=== PATIENT | female | born 1960 | race Caucasian/White ===

== ENCOUNTER → 2021-02-09 | Outpatient (CLI) | payer OTHER | LOC: SJCVCIMAG 11:24 | PROVIDERS: ATTEND Internal Medicine | DX: I08.2 Rheumatic disorders of both aortic and tricuspid valves (principal); I49.3 Ventricular premature depolarization; R00.2 Palpitations; I10 Essential (primary) hypertension ==

== ENCOUNTER 2021-06-06 12:04 | Emergency (ER) | payer OTHER ==
[~2021-06-06] VITALS: Ht 162.6 cm; Wt 59.0 kg
[2021-06-06 15:22] LABS: ABSOLUTE NEUTROPHILS 5.2 thou/uL (1.4-8.2); BASOPHILS 0.3 % (0.0-2.0); EOSINOPHILS 1.1 % (0.0-3.0); HEMATOCRIT 35.5 % (37.0-47.0); HEMOGLOBIN 12.1 gm/dL (12.0-15.0); LYMPHOCYTES 17.7 % (24.0-44.0); MCH 31.8 pg (26.0-34.0); MCHC 34.1 g/dL (28.0-37.0); MCV 93.2 fL (80.0-100.0); MONOCYTES 5.1 % (1.0-8.0); PLATELET COUNT 255 thou/uL (150-400); POLYS 75.8 % (36.0-66.0); RBC 3.81 mil/uL (4.20-5.00); RDW 12.8 % (10.5-14.5); WBC 6.9 thou/uL (4.0-11.0)
[2021-06-06 15:31] LABS: CALCIUM 8.6 mg/dL (8.5-10.1); CREATININE 0.6 mg/dL (0.6-1.0); POTASSIUM 3.6 mmol/L (3.5-5.1)
[2021-06-06 15:37] LABS: APTT 24.8 Seconds (24.5-32.8); INR 0.95; PROTIME 10.4 Seconds (10.5-12.1)
[2021-06-06] MEDS ORDERED: LISINOPRIL20 MG PO (16:07)
[2021-06-06] MEDS ORDERED: HYDROCHLOROTHIA25 M1 PO (16:07)
[2021-06-06] MEDS ORDERED: FLEXERIL PO (18:32)
[2021-06-06] MEDS ORDERED: NAPROSYN500 MG PO (18:32)
[2021-06-06] MEDS ORDERED: NORCO5 PO (18:32)
[2021-06-06 18:41] VITALS: BP 155/69
== END 2021-06-06 18:43 | disposition home or self-care (01) ==
LOC: ER 12:04
PROVIDERS: Nurse Practitioner
DX: S22.43XA Multiple fractures of ribs, bilateral, initial encounter for closed fracture (principal); M54.2 Cervicalgia; M54.6 Pain in thoracic spine; I10 Essential (primary) hypertension; Z90.89 Acquired absence of other organs; Z79.899 Other long term (current) drug therapy; Z88.2 Allergy status to sulfonamides; Z88.8 Allergy status to other drugs, medicaments and biological substances; Z85.828 Personal history of other malignant neoplasm of skin; W18.30XA Fall on same level, unspecified, initial encounter; Y93.89 Activity, other specified; Y92.89 Other specified places as the place of occurrence of the external cause; Y99.8 Other external cause status